=== PATIENT | female | born 1935 | race Caucasian/White ===

== ENCOUNTER 2020-01-23 11:56 | Inpatient (IN) | payer MEDICARE, BC ==
[~2020-01-23] VITALS: Ht 170.2 cm; Wt 90.9 kg
--- NOTE | ~2020-01-23 | EC ---
PATIENT:LETTY MCLEOD DATE OF SERVICE: 01/23/20 SEX: F MEDICAL RECORD: [id number] DATE OF : 35 LOCATION:[facility] AGE OF PATIENT: 84 ADMISSION DATE: 01/23/20 REFERRING PHYSICIAN: INTERPRETING PHYSICIAN: CODY LEY MD ECHOCARDIOGRAM REPORT ECHO CHARGES 4 ECHO COMPLETE Date: 01/24/20 CLINICAL DIAGNOSIS: CVA ECHOCARDIOGRAPHIC MEASUREMENTS (adult normal given) AC root (d.<3.7cm) 3.4 cm LV Septum d (<1.2 cm> 1.2 cm Valve Excursion 1.7 cm LV Septum (systole) 1.8 cm Left Atria (s.<4.0cm> 4.2 cm LVPW d(<1.2cm) 1.2 cm RV (d.<2.3cm) 1.9 cm LVPW (sytole) 1.7 cm LV diastole(<5.6CM) 4.3 cm MV E-F(>70mm/sec) cm LV systole 2.4 cm LVOT Diameter 1.9 cm MV exc.(>10mm) cm Est.ejection fraction (50-75%) % DOPPLER: LVIT cm/sec A 83.0 cm/sec E 92.0 cm/sec LA cm/sec RVSP 28.0 mmHg LVOT 111 cm/sec AOP1/2T m/s Asc. Ao 160 cm/sec RVOT 64.0 cm/sec RA cm/sec PA 112 cm/sec AV Gradient Peak 10.3 mmHg AV Mean 5.6 mmHg AV Area 1.7 cm MV Gradient Peak 5.4 mmHg MV Mean 2.6 mmHg MV Area cm COMMENTS: Chief Warden: Chavez SANCHEZOE Grocery Clerk Selling: 3 Dr. Scott TAPE# PACS Pericardial Effusion N DATE OF SERVICE: Adequate 2D, color flow imaging, spectral Doppler, and M-Mode. Borderline LVH. LV internal dimensions are normal. Wall motion is normal. EF is greater than or equal 55%. Aortic valve is sclerotic. No evidence of stenosis by Doppler interrogation. Left atrium is minimally dilated at 4.2 cm. Mitral valve shows no prolapse. Trivial MR. Right-sided chambers are grossly normal. Trivial TR. ECHOCARDIOGRAM REPORT [id number] LETTY MCLEOD TRANSINT:[id number] Voice Confirmation ID: [id number] DOCUMENT ID: [id number] CODY LEY MD CC: [id number] DICTATION DATE: 01/25/20 1010 CELERY STRIPPER: 01/25/201907 DIS IN 01/25/20 [facility] [address] [id number]
[2020-01-23] MEDS ORDERED: SUPER B COMPLE1 EAC1 PO (12:16)
[2020-01-23] MEDS ORDERED: ALENDRONAT70 MG/75 M PO (12:16)
--- NOTE | 2020-01-23 12:16 | NUR ---
URINE SENT TO LAB VIA TUBE SYSTEM.
[2020-01-23] MEDS ORDERED: TIROSINT100 MCG PO (12:17)
[2020-01-23] MEDS ORDERED: LOSARTAN-HCTZ1 EAC1 PO (12:17)
[2020-01-23] MEDS ORDERED: OMEPRAZOLE20 M1 PO (12:18)
[2020-01-23] MEDS ORDERED: TOPROL XL25 MG PO (12:18)
[2020-01-23] MEDS ORDERED: ZOFRAN4 MG PO (12:18)
[2020-01-23] MEDS ORDERED: MELATONIN5 M3 PO (12:18)
[2020-01-23] MEDS ORDERED: VENTOLIN HFA [SP8 GM INH (12:19)
[2020-01-23 12:47] LABS: BILIRUBIN NEGATIVE (NEGATIVE); KETONE NEGATIVE (NEGATIVE); NITRITE NEGATIVE (NEGATIVE); UROBILINOGEN NORMAL (NORMAL)
[2020-01-23 12:51] LABS: BASOPHILS 0.4 % (0-2); EOSINOPHILS 1.1 % (0-7); HEMATOCRIT 39.6 % (36.0-48.0); HEMOGLOBIN 13.1 g/dL (12-16); IMMATURE GRANULOCYTES 0.5 % (0-5); LYMPHOCYTES 12.5 % (15-50); MCHC 33.1 g/dL (31.0-37.0); MCV 93.8 fL (80.0-100.0); MONOCYTES 8.4 % (2-11); NEUTROPHILS 77.1 % (40-80); PLATELET COUNT 189 10x3/uL (130-400); RBC 4.22 10x6/uL (4.00-5.40); UDS - AMPHET NEGATIVE QUAL (NEGATIVE); UDS - BARB NEGATIVE QUAL (NEGATIVE); UDS - BENZO NEGATIVE QUAL (NEGATIVE); UDS - COCAINE NEGATIVE QUAL (NEGATIVE); UDS - OPIATE NEGATIVE QUAL (NEGATIVE); UDS - PCP NEGATIVE QUAL (NEGATIVE); UDS - THC NEGATIVE QUAL (NEGATIVE); WBC 8.1 10x3/uL (4.8-10.8)
[2020-01-23 13:00] VITALS: BP 154/80
[2020-01-23 13:01] LABS: CALC OSMOLALITY 287 mosm/kg (275-300); CALCIUM 10.5 mg/dL (8.5-10.1); CHLORIDE - SERUM 105 mmol/L (98-107); CREATININE - SERUM 1.2 mg/dL (0.6-1.3); GLUCOSE 110 mg/dL (74-106); POTASSIUM - SERUM 3.7 mmol/L (3.5-5.1); SODIUM 142 mmol/L (136-145); UREA NITROGEN 24 mg/dL (7-18); eGFR NON AFRICAN AMERICAN 45 mL/min (90-120)
[2020-01-23 13:18] LABS: ALBUMIN 3.8 g/dL (3.4-5.0); ALKALINE PHOSPHATASE 76 U/L (30-120); ALT (SGPT) 23 U/L (10-68); BILIRUBIN - TOTAL 0.54 mg/dL (0.2-1.3); CKMB 0.9 U/L (0.0-3.6); CREATINE KINASE 39 UL (21-215); MAGNESIUM - SERUM 1.9 mg/dL (1.8-2.4); PROTEIN - SERUM 7.4 g/dL (6.4-8.2); THYROID STIMULATING HORMONE 2.04 uIU/mL (0.36-3.74)
[2020-01-23 13:20] LABS: TROPONIN-I < 0.017 ng/mL (0.000-0.060)
[2020-01-23 13:30] LABS: INR 0.94 (0.85-1.17); PROTIME 12.6 SECONDS (11.6-15.0)
[2020-01-23 14:00] VITALS: BP 140/66
[2020-01-23 16:17] VITALS: BP 141/79
[2020-01-23 17:04] VITALS: BP 145/76; Ht 170.2 cm; Wt 90.9 kg
[2020-01-23 17:53] VITALS: BP 157/82
[2020-01-23 20:00] VITALS: BP 172/103
[2020-01-24 04:00] VITALS: BP 109/66
[2020-01-24 06:16] LABS: BASOPHILS 0.6 % (0-2); EOSINOPHILS 1.7 % (0-7); HEMATOCRIT 38.7 % (36.0-48.0); HEMOGLOBIN 12.6 g/dL (12-16); IMMATURE GRANULOCYTES 0.9 % (0-5); LYMPHOCYTES 19.4 % (15-50); MCH 30.7 pg (26.0-34.0); MCHC 32.6 g/dL (31.0-37.0); MCV 94.4 fL (80.0-100.0); MEAN PLATELET VOLUME 11.7 fL (7.4-10.4); MONOCYTES 11.1 % (2-11); NEUTROPHILS 66.3 % (40-80); PLATELET COUNT 198 10x3/uL (130-400); WBC 6.5 10x3/uL (4.8-10.8)
[2020-01-24 06:42] LABS: ANION GAP 9.4 mmol/L (8-16); CALCIUM 10.2 mg/dL (8.5-10.1); CARBON DIOXIDE 29.4 mmol/L (21.0-32.0); CREATININE - SERUM 1.2 mg/dL (0.6-1.3); MAGNESIUM - SERUM 1.9 mg/dL (1.8-2.4); POTASSIUM - SERUM 3.8 mmol/L (3.5-5.1)
[2020-01-24 08:00] VITALS: BP 117/69
--- NOTE | 2020-01-24 10:49 | NUR ---
NOTIFIED DR. CUEVAS OF PT BEING REFERRED TO HIM AND REC'D NEW ORDERS FOR [facility] AND [facility] LAB DRAWS.
[2020-01-24 11:44] LABS: CHOL - HDL RATIO 2.8 ratio (2.3-4.1); LDL-HDL RATIO 1.1 ratio (1.5-3.5)
[2020-01-24 13:26] VITALS: BP 107/60
--- NOTE | 2020-01-24 14:23 | NUR ---
I have reviewed this patient and I concur with the Shift Assessment completed by the Licensed Practical Nurse today this shift.
[2020-01-24 16:17] VITALS: BP 116/73
--- NOTE | 2020-01-24 19:00 | NUR ---
ALERT AND ORIENTED X 4. GAIT IS STRONG AND STEADY WHEN AMBULATING TO THE BATHROOM. DAUGHTER AT BEDSIDE. QUESTIONS ANSWERED. PATIENT DENIES PAIN OR DISCOMFORT. REFUSES 2100 MELATONIN AT THIS TIME, STATES ONLY FOR PRN USE. LEFT AC IV IN TACT AND SALINE LOCKED AT THIS TIME. ASSESSMENT PERFORMED. DENIES FURTHER NEEDS AT THIS TIME. CALL LIGHT CLOSE. CPOC.
[2020-01-24 20:00] VITALS: BP 121/66
[2020-01-25] VITALS: BP 122/78
[2020-01-25 07:04] LABS: BASOPHILS 0.3 % (0-2); EOSINOPHILS 1.8 % (0-7); HEMOGLOBIN 12.8 g/dL (12-16); IMMATURE GRANULOCYTES 0.7 % (0-5); LYMPHOCYTES 18.4 % (15-50); MCH 30.7 pg (26.0-34.0); MCHC 32.8 g/dL (31.0-37.0); MCV 93.5 fL (80.0-100.0); MEAN PLATELET VOLUME 11.2 fL (7.4-10.4); MONOCYTES 10.9 % (2-11); NEUTROPHILS 67.9 % (40-80); PLATELET COUNT 196 10x3/uL (130-400); RBC 4.17 10x6/uL (4.00-5.40); WBC 6.7 10x3/uL (4.8-10.8)
[2020-01-25 07:21] LABS: ANION GAP 12.6 mmol/L (8-16); CALCIUM 10.2 mg/dL (8.5-10.1); CARBON DIOXIDE 27.7 mmol/L (21.0-32.0); CREATININE - SERUM 1.1 mg/dL (0.6-1.3); MAGNESIUM - SERUM 1.7 mg/dL (1.8-2.4); PHOSPHOROUS 2.9 mg/dL (2.5-4.9); POTASSIUM - SERUM 3.3 mmol/L (3.5-5.1)
--- NOTE | 2020-01-25 08:44 | NUR ---
RESTING IN BED, FAMILY IN ROOM, NO DISTRESS NOTED, AWAITING DR CUEVAS TODAY
[2020-01-25 09:53] VITALS: BP 115/77
[2020-01-25 12:45] VITALS: BP 119/64
[2020-01-25] MEDS ORDERED: ASPIRIN325 MG PO (15:30)
[2020-01-25] MEDS ORDERED: PLAVIX75 MG PO (15:30)
--- NOTE | 2020-01-25 16:18 | MORECARE ---
CASE MANAGEMENT DISCHARGE SUMMARY PATIENT: LETTY MCLEOD UNIT: [id number] ADM DATE: 01/23/20 AGE: 84 : 35 SEX: F ROOM/BED: D.2201 AUTHOR: LINDSAY CLARK PHYSICIAN: REFERRING PHYSICIAN: DAR VAZQUEZ DO DATE OF SERVICE: 01/25/20 Discharge Plan Patient Name: LETTY MCLEOD Facility: [facility]:[place] : 1935 Planned Disposition: Home Anticipated Discharge Date: Discharge Date: Expected LOS: Initial Reviewer: [email or web address] Initial Review Date: 01/23/2020 Generated: 01/25/20 5:17 pm Comments DCP- Discharge Planning Updated by [email or web address]: Kelin Jimenez on 01/25/20 3:[address] Patient Name: LETTY MCLEOD Admission Status: ER Accout number: [id number] Admission Date: 01-23-2020 : 1935 Admission Diagnosis: Attending: DAR VAZQUEZ Current LOS: 2 Anticipated DC Date: Planned Disposition: Home Primary Insurance: MEDICARE A & B Discharge Planning Comments: CM met with patient to complete initial dc planning assessment. CM educated patient on the CM role and verbal consent given by patient to complete assessment. CM verified patient's address, phone number, and emergency contact phone numbers. Patient lives with her eldest daughter Radha. At discharge patient plans to return home and feels this is a safe discharge. CM discussed availability of home health, rehab services, and medical equipment. Patient denied known discharge needs at this time; declination form signed and placed on the chart. Pt states she can ambulate without difficulty and does not require any DME at this time. Transportation provider at discharge will be her daughter who is at bedside. DC IMM delivered, explained, signed by the patient, and placed in chart. Signed form also left with the patient. CM will continue to follow and will assist as needed with dc plans/needs. Program Clerk: Kelin Jimenez Coverage Notice Reviewer: [id number] - Kelin Jimenez Notice Issued Date-Time: 01/25/2020 15:50 Notice Type: IM Discharge Notice Notice Delivered To: Patient Relationship to Patient: Stereotype Finisher Name: Delivery Method: HAND - Hand Delivered Bren Days: Prior Verbal Notification: Recipient Understood Notice: Yes Recipient Signature: Yes Med Rec Note Co-signed by Attending: Coverage Notice Comment: dc imm delivered Reviewer: [id number] Lance Jimenez Notice Issued Date-Time: 01/25/2020 13:50 Notice Type: Patient Choice Letter Notice Delivered To: Patient Relationship to Patient: Stereotype Finisher Name: Delivery Method: HAND - Hand Delivered Bren Days: Prior Verbal Notification: Recipient Understood Notice: Recipient Signature: Yes Med Rec Note Co-signed by Attending: Coverage Notice Comment: declined hh, or dme Patient Name: LETTY MCLEOD Page [phone] at 1618 All edits/amendments must be made on the electronic document DICTATION DATE: 01/25/201616 SCOOPING MACHINE TENDER: BARON 01/25/201616 RPT#: [id number] DC DATE: STATUS: ADM IN [facility] [address] [place] [address] END OF REPORT
--- NOTE | 2020-01-25 16:20 | NUR ---
SL REMOVED, TIP INTACT, REVIEWED D/C ORDERS WITH PT
[2020-01-25 16:37] VITALS: BP 114/63
--- NOTE | 2020-01-25 16:50 | NUR ---
TAKEN TO PRIVATE VEHICLE PER W/C
--- NOTE | 2020-01-26 08:08 | MORECARE ---
CASE MANAGEMENT DISCHARGE SUMMARY PATIENT: LETTY MCLEOD UNIT: [id number] ADM DATE: 01/23/20 AGE: 84 : 35 SEX: F ROOM/BED: D.2201 AUTHOR: LINDSAY CLARK PHYSICIAN: REFERRING PHYSICIAN: DAR VAZQUEZ DO DATE OF SERVICE: 01/26/20 Discharge Plan Patient Name: LETTY MCLEOD Facility: [facility]:[place] : 1935 Planned Disposition: Home Anticipated Discharge Date: Discharge Date: 01/25/2020 Expected LOS: Initial Reviewer: [email or web address] Initial Review Date: 01/23/2020 Generated: 01/26/20 9:08 am Comments DCP- Discharge Planning Updated by [email or web address]: Kelin Jimenez on 01/25/20 3:[address] Patient Name: LETTY MCLEOD Admission Status: ER Accout number: [id number] Admission Date: 01-23-2020 : 1935 Admission Diagnosis: Attending: DAR VAZQUEZ Current LOS: 2 Anticipated DC Date: Planned Disposition: Home Primary Insurance: MEDICARE A & B Discharge Planning Comments: CM met with patient to complete initial dc planning assessment. CM educated patient on the CM role and verbal consent given by patient to complete assessment. CM verified patient's address, phone number, and emergency contact phone numbers. Patient lives with her eldest daughter Radha. At discharge patient plans to return home and feels this is a safe discharge. CM discussed availability of home health, rehab services, and medical equipment. Patient denied known discharge needs at this time; declination form signed and placed on the chart. Pt states she can ambulate without difficulty and does not require any DME at this time. Transportation provider at discharge will be her daughter who is at bedside. DC IMM delivered, explained, signed by the patient, and placed in chart. Signed form also left with the patient. CM will continue to follow and will assist as needed with dc plans/needs. Orthopedically Impaired Teacher: Kelin Jimenez Coverage Notice Reviewer: [id number] - Kelin Jimenez Notice Issued Date-Time: 01/25/2020 15:50 Notice Type: IM Discharge Notice Notice Delivered To: Patient Relationship to Patient: Prop Cutter Name: Delivery Method: HAND - Hand Delivered Bren Days: Prior Verbal Notification: Recipient Understood Notice: Yes Recipient Signature: Yes Med Rec Note Co-signed by Attending: Coverage Notice Comment: dc imm delivered Reviewer: [email or web address] Lance Jimenez Notice Issued Date-Time: 01/25/2020 13:50 Notice Type: Patient Choice Letter Notice Delivered To: Patient Relationship to Patient: Prop Cutter Name: Delivery Method: HAND - Hand Delivered Bren Days: Prior Verbal Notification: Recipient Understood Notice: Recipient Signature: Yes Med Rec Note Co-signed by Attending: Coverage Notice Comment: declined hh, or dme Last DP export: 01/25/20 3:18 p Patient Name: LETTY MCLEOD Page [phone] at 0808 All edits/amendments must be made on the electronic document DICTATION DATE: 01/26/20 0808 TOOL DRESSER: BARON 01/26/20 0808 RPT#: [id number] DC DATE:01/25/20 STATUS: DIS IN [address] [place] [address] END OF REPORT
== END 2020-01-25 16:50 | disposition home or self-care (01) | DRG 66 ==
LOC: D.ER 11:56 → D.MS 14:19
PROVIDERS: Emergency Medicine; Family Medicine; ADMIT Family Medicine; ATTEND Family Medicine
DX: I63.9 Cerebral infarction, unspecified (principal); I10 Essential (primary) hypertension; E03.9 Hypothyroidism, unspecified; K21.9 Gastro-esophageal reflux disease without esophagitis; E78.5 Hyperlipidemia, unspecified